=== PATIENT | female | born 1995 | race Caucasian/White ===

== ENCOUNTER 2018-04-30 19:53 | Emergency (ER) | payer OTHER ==
[2018-04-30] MEDS ORDERED: Adacel (T-DAP) 0.5 ML VIAL ONE (20:16)
[2018-04-30] MEDS ORDERED: Lidocaine 1% PF 5 ML VIAL ONE (20:38)
== END 2018-04-30 21:57 | disposition home or self-care (01) ==
LOC: ERS 19:53
DX: S01.511A Laceration without foreign body of lip, initial encounter (principal); W20.8XXA Other cause of strike by thrown, projected or falling object, initial encounter; Y92.69 Other specified industrial and construction area as the place of occurrence of the external cause
CPT/HCPCS: 12011; 90471; 90715; J2001